=== PATIENT | male | born 1975 | race Caucasian/White ===

== ENCOUNTER → 2016-10-01 | Outpatient (REF) ==
[~2016-10-01] MED LIST: NO HOME MEDICATIONS
[2016-10-02 16:08] LABS: PSA-TOTAL 0.77 ng/mL (0-4); THYROID STIMULATING HORMONE 3.98 uIU/mL (0.465-4.680)
== END ==
LOC: ZLAB.WCH 18:14
PROVIDERS: Internal Medicine
DX: Z01.89 Encounter for other specified special examinations (principal)
CPT/HCPCS: G0103

== ENCOUNTER → 2019-01-15 | Outpatient (REF) | LOC: COL.CARD 11:59 | DX: Z01.818 Encounter for other preprocedural examination (principal) ==